=== PATIENT | female | born 1995 | race Caucasian/White ===

== ENCOUNTER 2017-02-22 23:09 | Emergency (ER) | payer SELFPAY ==
[~2017-02-22] VITALS: Ht 165.1 cm; Wt 107.0 kg
[~2017-02-22 23:09] MED LIST: PREN-88 PO
[2017-02-23] MEDS ORDERED: IBUPROFEN 600MG TABLET PO ONE (00:15)
[2017-02-23] MEDS ORDERED: PROMETHAZINE LIQUID 6.25MG/5ML 118ML PO STA (00:29)
[2017-02-23 00:43] VITALS: BP 109/67
[2017-02-23] MEDS ORDERED: IBUPROFEN 600MG TABLET PO NR (00:45)
== END 2017-02-23 00:57 | disposition home or self-care (01) ==
LOC: ER 23:09
DX: R05 Cough (principal); J45.909 Unspecified asthma, uncomplicated; Z91.013 Allergy to seafood
CPT/HCPCS: 81025; 99283; Q0169

== ENCOUNTER 2017-06-06 00:05 | Emergency (ER) | payer OTHER ==
[~2017-06-06] VITALS: Ht 165.1 cm; Wt 107.0 kg
[2017-06-06 05:49] LABS: BASOPHILS % 0.6 % (0.0-2.0); HEMATOCRIT. 31.3 % (36.0-48.0); HEMOGLOBIN. 9.6 g/dL (12.0-16.0); LYMPHOCYTES % 30.6 % (20.0-50.0); MEAN CORPUSCULAR HEMOGLOBIN 19.2 pg (28.0-32.0); MEAN CORPUSCULAR VOLUME 62.8 fL (81.0-99.0); MEAN PLATELET VOLUME 8.4 fl (7.4-10.4); MONOCYTES % 6.1 % (2.0-8.0); NEUTROPHILS % 58.7 % (40.0-76.0); PLATELET 292 x1000/uL (130-400); RED BLOOD CELL COUNT 4.98 mill/uL (4.2-5.4); RED CELL DISTRIBUTION WIDTH 21.3 % (11.6-14.6)
[2017-06-06 06:05] LABS: CHLORIDE 106 mEq/L (98-107)
[2017-06-06 06:15] LABS: CLARITY URINE CLEAR (CLEAR); COLOR URINE YELLOW (YELLOW); KETONES URINE NEGATIVE (NEGATIVE); LEUKOCYTE ESTERASE URINE NEGATIVE (NEGATIVE); NITRITE URINE NEGATIVE (NEGATIVE); OCCULT BLOOD URINE NEGATIVE (NEGATIVE); PH URINE 5.5 (4.5-8.0); PROTEIN URINE NEGATIVE (NEGATIVE); SPECIFIC GRAVITY URINE 1.027 (1.005-1.030); UROBILINOGEN URINE 0.2 E.U./dL (0.2-1.0)
[2017-06-06 06:17] LABS: HCG SCREEN NEGATIVE
[2017-06-06] MEDS ORDERED: TRAMADOL 50MG TABLET PO ONE (07:15)
[2017-06-06 08:10] VITALS: BP 103/65
== END 2017-06-06 09:16 | disposition home or self-care (01) ==
LOC: ER 02:28
DX: R10.32 Left lower quadrant pain (principal); R11.0 Nausea; J45.909 Unspecified asthma, uncomplicated; Z91.013 Allergy to seafood
CPT/HCPCS: 36415; 76830; 76856; 80053; 81003; 84703; 85025; 99285; Z7610

== ENCOUNTER 2018-03-28 20:12 | Emergency (ER) | payer MEDICAID, OTHER ==
[~2018-03-28] VITALS: Ht 165.1 cm; Wt 121.0 kg
[2018-03-29 00:56] LABS: BASOPHILS % 0.4 % (0.0-2.0); EOSINOPHILS % 1.5 % (0.0-5.0); HEMATOCRIT. 34.3 % (36.0-48.0); HEMOGLOBIN. 10.7 g/dL (12.0-16.0); LYMPHOCYTES % 26.7 % (20.0-50.0); MEAN CORPUSCULAR HEMOGLOBIN 21.1 pg (28.0-32.0); MEAN CORPUSCULAR VOLUME 67.5 fL (81.0-99.0); MEAN PLATELET VOLUME 7.7 fl (7.4-10.4); MONOCYTES % 5.1 % (2.0-8.0); NEUTROPHILS % 66.3 % (40.0-76.0); PLATELET 338 x1000/uL (130-400); RED BLOOD CELL COUNT 5.08 mill/uL (4.2-5.4)
[2018-03-29] MEDS ORDERED: SODIUM CHLORIDE 0.9% 1,000 ML IV NR (01:06)
[2018-03-29 01:08] LABS: CHLORIDE 107 mEq/L (98-107)
[2018-03-29 01:19] LABS: B-HCG QUANTITATIVE < 1 mIU/mL (<3)
[2018-03-29 02:06] LABS: CLARITY URINE CLOUDY (CLEAR); COLOR URINE YELLOW (YELLOW); KETONES URINE NEGATIVE (NEGATIVE); LEUKOCYTE ESTERASE URINE TRACE (NEGATIVE); NITRITE URINE NEGATIVE (NEGATIVE); OCCULT BLOOD URINE 3+ (NEGATIVE); PROTEIN URINE TRACE (NEGATIVE); SPECIFIC GRAVITY URINE 1.032 (1.005-1.030); UROBILINOGEN URINE 0.2 E.U./dL (0.2-1.0)
[2018-03-29 02:47] VITALS: BP 133/65
[2018-03-29 06:33] LABS: PLATELET ESTIMATE NORMAL
== END 2018-03-29 02:50 | disposition home or self-care (01) ==
LOC: ER 21:13
DX: N93.8 Other specified abnormal uterine and vaginal bleeding (principal); R42 Dizziness and giddiness; R10.30 Lower abdominal pain, unspecified; R11.2 Nausea with vomiting, unspecified; R19.7 Diarrhea, unspecified; J45.909 Unspecified asthma, uncomplicated; Z91.013 Allergy to seafood
CPT/HCPCS: 36415; 76830; 76856; 81025; 84702; 86850; 86900; 96360; 99284

== ENCOUNTER 2018-09-05 00:06 | Emergency (ER) | payer MEDICAID, OTHER ==
[~2018-09-05] VITALS: Ht 165.1 cm; Wt 129.0 kg
[2018-09-05] MEDS ORDERED: SODIUM CHLORIDE 0.9% 1,000 ML IV ONE (01:57)
[2018-09-05] MEDS ORDERED: ONDANSETRON 4MG ODT PO ONE (02:00)
[2018-09-05 02:51] LABS: BASOPHILS % 0.2 % (0.0-2.0); EOSINOPHILS % 0.9 % (0.0-5.0); LYMPHOCYTES % 22.5 % (20.0-50.0); MEAN CORPUSCULAR HEMOGLOBIN 20.6 pg (28.0-32.0); MEAN CORPUSCULAR VOLUME 65.9 fL (81.0-99.0); MEAN PLATELET VOLUME 8.6 fl (7.4-10.4); MONOCYTES % 6.1 % (2.0-8.0); NEUTROPHILS % 70.3 % (40.0-76.0); PLATELET 241 x1000/uL (130-400); RED BLOOD CELL COUNT 4.86 mill/uL (4.2-5.4); RED CELL DISTRIBUTION WIDTH 19.9 % (11.6-14.6)
[2018-09-05 02:58] LABS: CHLORIDE 105 mEq/L (98-107)
[2018-09-05] MEDS ORDERED: ACETAMINOPHEN 500MG TABLET PO ONE (03:00)
[2018-09-05 03:30] LABS: PLATELET ESTIMATE NORMAL
[2018-09-05 04:30] VITALS: BP 139/88
== END 2018-09-05 04:48 | disposition home or self-care (01) ==
LOC: ER 00:06
DX: E28.2 Polycystic ovarian syndrome (principal); R42 Dizziness and giddiness; Z91.013 Allergy to seafood; Z87.892 Personal history of anaphylaxis
CPT/HCPCS: 36415; 76830; 76856; 80053; 81025; 85025; 86850; 86900; 86901; 93005; 96360; 96361; 99284; J7030; Q0162

== ENCOUNTER 2019-04-16 22:50 | Inpatient (IN) | payer MEDICAID, OTHER ==
[~2019-04-16] VITALS: Ht 165.1 cm; Wt 127.0 kg
[2019-04-17] MEDS ORDERED: SODIUM CHLORIDE 0.9% 1,000 ML IV ONE (00:21)
[2019-04-17] MEDS ORDERED: KETOROLAC 30MG/ML VIAL IV STA (00:21)
[2019-04-17] MEDS ORDERED: MORPHINE SULFATE 4 MG/ML CPJ (NOT FOR IM USE) IV STA (00:21)
[2019-04-17] MEDS ORDERED: ONDANSETRON HCL 4MG/2ML INJ IV STA (00:21)
[2019-04-17 00:51] LABS: CLARITY URINE TURBID (CLEAR); COLOR URINE YELLOW (YELLOW); KETONES URINE TRACE (NEGATIVE); LEUKOCYTE ESTERASE URINE 1+ (NEGATIVE); NITRITE URINE NEGATIVE (NEGATIVE); OCCULT BLOOD URINE NEGATIVE (NEGATIVE); PROTEIN URINE 1+ (NEGATIVE); SPECIFIC GRAVITY URINE 1.029 (1.005-1.030); UROBILINOGEN URINE 0.2 E.U./dL (0.2-1.0)
[2019-04-17 00:56] LABS: BASOPHILS % 0.3 % (0.0-2.0); EOSINOPHILS % 0.7 % (0.0-5.0); HEMATOCRIT. 37.6 % (36.0-48.0); HEMOGLOBIN. 11.6 g/dL (12.0-16.0); LYMPHOCYTES % 11.6 % (20.0-50.0); MEAN CORPUSCULAR HEMOGLOBIN 19.6 pg (28.0-32.0); MEAN CORPUSCULAR VOLUME 63.7 fL (81.0-99.0); MEAN PLATELET VOLUME 7.8 fl (7.4-10.4); MONOCYTES % 2.3 % (2.0-8.0); NEUTROPHILS % 85.1 % (40.0-76.0); PLATELET 313 x1000/uL (130-400); RED BLOOD CELL COUNT 5.91 mill/uL (4.2-5.4); RED CELL DISTRIBUTION WIDTH 19.1 % (11.6-14.6)
[2019-04-17 01:02] LABS: CHLORIDE 104 mEq/L (98-107)
[2019-04-17 01:13] LABS: B-HCG QUANTITATIVE < 1 mIU/mL (<3)
[2019-04-17 02:03] LABS: PROTHROMBIN TIME 10.6 sec (9.6-11.0)
[2019-04-17] MEDS ORDERED: ONDANSETRON HCL 4MG/2ML INJ IV ONE ×2 (02:30→06:00)
[2019-04-17] MEDS ORDERED: MORPHINE SULFATE 4 MG/ML CPJ (NOT FOR IM USE) IV ONE ×2 (02:30→06:00)
[2019-04-17] MEDS: CEFTRIAXONE 1 G PREMIX 50 ML IV SCH ×2 (02:43→06:21)
[2019-04-17 04:07] LABS: PLATELET ESTIMATE NORMAL
[2019-04-17 08:00] VITALS: BP 117/62
[2019-04-17] MEDS ORDERED: ONDANSETRON HCL 4MG/2ML INJ IV PRN (10:15)
[2019-04-17] MEDS ORDERED: SODIUM CHL 0.9% + KCL 20MEQ/L 1,000 ML IV SCH (11:00)
[2019-04-17 11:04] VITALS: BP 117/62
[2019-04-17] MEDS: MORPHINE SULFATE 2 MG/ML CPJ (NOT FOR IM USE) IV PRN ×2 (11:28→21:18)
[2019-04-17 12:00] VITALS: BP 108/56
[2019-04-17 16:00] VITALS: BP 97/61
[2019-04-17 20:00] VITALS: BP 120/66
[2019-04-17] MEDS ORDERED: ACETAMINOPHEN 325MG TABLET PO PRN (20:30)
[2019-04-17] MEDS ORDERED: MAGNESIUM/ALUMINUM HYDROXIDE/SIMETHICONE 30ML UDC PO PRN (20:30)
[2019-04-17] MEDS ORDERED: CLONIDINE 0.1MG TABLET PO PRN (20:30)
[2019-04-17] MEDS: SODIUM CHLORIDE 0.9% 1,000 ML IV SCH (21:24)
[2019-04-18] VITALS: BP 113/60
[2019-04-18 04:00] VITALS: BP 111/63
[2019-04-18] MEDS: CEFTRIAXONE 1 G PREMIX 50 ML IV SCH (05:35)
[2019-04-18 06:24] LABS: BASOPHILS % 0.2 % (0.0-2.0); EOSINOPHILS % 4.3 % (0.0-5.0); HEMATOCRIT. 30.1 % (36.0-48.0); HEMOGLOBIN. 9.3 g/dL (12.0-16.0); LYMPHOCYTES % 26.5 % (20.0-50.0); MEAN CORPUSCULAR HEMOGLOBIN 19.9 pg (28.0-32.0); MEAN CORPUSCULAR VOLUME 64.5 fL (81.0-99.0); MEAN PLATELET VOLUME 8.8 fl (7.4-10.4); MONOCYTES % 7.3 % (2.0-8.0); NEUTROPHILS % 61.7 % (40.0-76.0); PLATELET 221 x1000/uL (130-400); RED BLOOD CELL COUNT 4.66 mill/uL (4.2-5.4)
[2019-04-18 06:50] LABS: CHLORIDE 110 mEq/L (98-107)
[2019-04-18 07:06] LABS: PHOSPHORUS 2.1 mg/dL (2.5-4.9)
[2019-04-18] MEDS ORDERED: POTASSIUM CHLORIDE 20MEQ TABLET SR PO NR (07:45)
[2019-04-18 08:00] VITALS: BP 108/76
[2019-04-18] MEDS: MORPHINE SULFATE 2 MG/ML CPJ (NOT FOR IM USE) IV PRN ×3 (08:16→23:55)
[2019-04-18] MEDS: SODIUM CHLORIDE 0.9% 1,000 ML IV SCH (09:49)
[2019-04-18 12:00] VITALS: BP 104/66
[2019-04-18] MEDS ORDERED: POTASSIUM-SODIUM PHOSPHATE POWDER PACKET PO NR (14:15)
[2019-04-18 16:00] VITALS: BP 101/54
[2019-04-18 20:00] VITALS: BP 110/58
[2019-04-19] VITALS: BP 118/60
[2019-04-19 04:00] VITALS: BP 119/67
[2019-04-19] MEDS: CEFTRIAXONE 1 G PREMIX 50 ML IV SCH (05:29)
[2019-04-19 08:34] LABS: CHLORIDE 112 mEq/L (98-107)
[2019-04-19 08:37] LABS: BASOPHILS % 0.6 % (0.0-2.0); HEMATOCRIT. 31.2 % (36.0-48.0); HEMOGLOBIN. 9.5 g/dL (12.0-16.0); LYMPHOCYTES % 34.8 % (20.0-50.0); MEAN CORPUSCULAR HEMOGLOBIN 20.1 pg (28.0-32.0); MEAN CORPUSCULAR VOLUME 65.9 fL (81.0-99.0); MEAN PLATELET VOLUME 8.7 fl (7.4-10.4); MONOCYTES % 7.5 % (2.0-8.0); NEUTROPHILS % 53.1 % (40.0-76.0); PLATELET 209 x1000/uL (130-400); RED BLOOD CELL COUNT 4.73 mill/uL (4.2-5.4); RED CELL DISTRIBUTION WIDTH 19.2 % (11.6-14.6)
[2019-04-19 12:00] VITALS: BP 102/75
[2019-04-19] MEDS ORDERED: LEVO500T2 MT (12:35)
[2019-04-19 13:13] VITALS: BP 102/75
== END 2019-04-19 14:10 | disposition home or self-care (01) | DRG 720 ==
LOC: ER 22:50 → 6EST 04-17 05:49 → EDBEDREQ 04-17 05:51 → EDBEDREQTM 04-17 05:51 → ENRESERV 04-17 08:02
PROVIDERS: ADMIT Internal Medicine; ATTEND Internal Medicine
DX: A41.9 Sepsis, unspecified organism (principal); Z68.42 Body mass index [BMI] 45.0-49.9, adult; E28.2 Polycystic ovarian syndrome; K52.9 Noninfective gastroenteritis and colitis, unspecified; J45.909 Unspecified asthma, uncomplicated; N39.0 Urinary tract infection, site not specified; E66.9 Obesity, unspecified; Z91.013 Allergy to seafood; Z79.899 Other long term (current) drug therapy; Z71.89 Other specified counseling
CPT/HCPCS: 36415; 74176; 80048; 81003; 83735; 84100; 84702; 93970; 96374; 96375; 99285; J0696; J1885; J2270; J2405; J3480; J7030

== ENCOUNTER 2020-04-09 11:48 | Emergency (ER) | payer MEDICAID, OTHER ==
[~2020-04-09] VITALS: Ht 165.1 cm; Wt 120.0 kg
[~2020-04-09 11:48] MED LIST changes: +LEVO500T2 MT
[2020-04-09] MEDS ORDERED: ALBUTEROL (0.083%) 2.5MG/3ML NEB HHN STA (12:08)
[2020-04-09] MEDS ORDERED: PREDNISONE 20MG TABLET PO STA (12:08)
[2020-04-09 13:45] VITALS: BP 156/79
== END 2020-04-09 14:07 | disposition home or self-care (01) ==
LOC: ER 11:48
DX: J45.901 Unspecified asthma with (acute) exacerbation (principal); Z98.890 Other specified postprocedural states; Z20.828 Contact with and (suspected) exposure to other viral communicable diseases
CPT/HCPCS: 71045; 87635; 94640; 99284; C9803; J7512; Z7610

== ENCOUNTER 2022-01-09 10:07 | Emergency (ER) | payer MEDICAID, OTHER ==
[~2022-01-09] VITALS: Ht 175.3 cm; Wt 101.0 kg
[2022-01-09] MEDS ORDERED: HYDROCODONE/ACETAMINOPHEN 5/325MG TABLET PO STA (11:31)
[2022-01-09 12:01] VITALS: BP 145/75
[2022-01-09] MEDS ORDERED: T3 PO (13:23)
[2022-01-09] MEDS ORDERED: IBUP-2029 PO (13:23)
== END 2022-01-09 14:40 | disposition home or self-care (01) ==
LOC: ER 10:07
DX: S97.81XA Crushing injury of right foot, initial encounter (principal); S97.01XA Crushing injury of right ankle, initial encounter; M25.561 Pain in right knee; V03.90XA Pedestrian on foot injured in collision with car, pick-up truck or van, unspecified whether traffic or nontraffic accident, initial encounter; Y93.01 Activity, walking, marching and hiking; Y92.410 Unspecified street and highway as the place of occurrence of the external cause
CPT/HCPCS: 73562; 73610; 73630; 81025; 99284